=== PATIENT | male | born 1965 | race Caucasian/White ===

== ENCOUNTER 2019-03-23 11:23 | Observation (INO) | payer BC ==
[2019-03-22 11:51] LABS: BASOPHILS % 0.4 % (0.0-1.0); EOSINOPHILS # (AUTO) 0.2 (0.0-0.4); EOSINOPHILS % 3.6 % (0.0-6.0); HEMATOCRIT 49.3 % (38.2-49.6); HEMOGLOBIN 16.8 g/dL (14.0-18.0); LYMPHOCYTES # (AUTO) 1.6 (1.0-3.2); LYMPHOCYTES % 23.4 % (18.0-39.1); MEAN CORPUSCULAR HEMOGLOBIN 30.1 pg (28-32); MEAN CORPUSCULAR HGB CONC 34.1 g/dL (31-35); MEAN CORPUSCULAR VOLUME 88.2 fL (81-99); MONOCYTES # (AUTO) 0.7 (0.2-0.8); MONOCYTES % 9.9 % (4.4-11.3); NEUTROPHILS # (AUTO) 4.2 (2.1-6.9); NEUTROPHILS % 62.6 % (38.7-80.0); PLATELET COUNT 260 x10e3/uL (140-360); RED BLOOD COUNT 5.59 x10e6/uL (4.3-5.7); RED CELL DISTRIBUTION WIDTH 13.7 % (11.7-14.4)
[2019-03-22 12:01] LABS: PROTHROMBIN TIME 13.7 seconds (11.9-14.5)
[2019-03-22 12:02] LABS: PARTIAL THROMBOPLASTIN TIME 31.8 seconds (23.8-35.5)
--- NOTE | 2019-03-22 12:06 | Diagnostic Imaging Report ---
EXAMINATION: CHEST 2 VIEWS INDICATION: Pre-admit. COMPARISON: None FINDINGS: TUBES and LINES: None. LUNGS: Lungs are not well inflated. There is no evidence of pneumonia or pulmonary edema. Minimal patchy left basilar opacity, likely atelectasis. PLEURA: No pleural effusion or pneumothorax. HEART AND MEDIASTINUM: The cardiomediastinal silhouette is unremarkable. BONES AND SOFT TISSUES: No acute osseous lesion. Soft tissues are unremarkable. UPPER ABDOMEN: No free air under the diaphragm. IMPRESSION: No acute radiographic abnormality. Signed by: Dr. Jordon Cochran MD on 03/22/2019 12:02 PM
[2019-03-22 12:11] LABS: ALBUMIN 3.9 g/dL (3.5-5.0); ALBUMIN/GLOBULIN RATIO 1.2 (0.8-2.0); ANION GAP 9.8 mmol/L (8-16); CALCIUM 9.4 mg/dL (8.4-10.2); CREATININE, SERUM 1.48 mg/dL (0.72-1.25); POTASSIUM 3.8 mmol/L (3.5-5.1)
[~2019-03-23] VITALS: Ht 175.3 cm; Wt 93.0 kg
[~2019-03-23 11:23] MED LIST: AMITRIPTYLINE H25 MG PO; ASPIR 8181 MG PO; ATORVASTATIN CA20 MG PO; CO Q10200 MG PO; DIOVAN HCT 80-1 EACH PO; EYE DROP TEARS15 ML OP; LEVOCETIRIZINE D5 MG PO; MEGA MULTI FOR1 EAC1 PO; SINUS & ALLERG1 EACH PO; TOPAMAX25 MG PO
[2019-03-23] MEDS ORDERED: CEFOXITIN 1GM/ D5W 50ML 50 ML IV ONE (11:45)
--- OUTSIDE RECORDS SUMMARY | 2019-03-23 13:02 | XMS REPORT ---
Author Author [facility] Address Unknown Phone Unavailable Care Team Providers Care Shot Bagger Name Role Phone NAIMA BARNETT Unavailable Unavailable Problems This patient has no known problems. Allergies, Adverse Reactions, Alerts This patient has no known allergies or adverse reactions. Medications This patient has no known medications. Results Test Description Test Time Test Comments Text Results Atomic Results Result Comments CHEST 2 VIEWS 2019-03-22 12:01:00 [place] [address] Patient Name: JODI THOMAS MR #: [id number] : 1965 Age/Sex: 53/M Req #: [id number] Adm Physician: Ordered by: NAIMA BARNETT MD Report #: [id number] Location: OR Room/Bed: Procedure: [id number] DX/CHEST 2 VIEWS Exam Date: 03/22/19 Exam Time: 1140 REPORT STATUS: Signed EXAMINATION: CHEST 2 VIEWS INDICATION: Pre-admit. COMPARISON: None FINDINGS: TUBES and LINES: None. LUNGS: Lungs are not well inflated. There is no evidence of pneumonia or pulmonary edema. Minimal patchy left basilar opacity, likely atelectasis. PLEURA: No pleural effusion or pneumothorax. HEART AND MEDIASTINUM: The cardiomediastinal silhouette is unremarkable. BONES AND SOFT TISSUES: No acute osseous lesion. Soft tissues are unremarkable. UPPER ABDOMEN: No free air under the diaphragm. IMPRESSION: No acute radiographic abnormality. Signed by: Dr. Whitney Ragsdale MD on 03/22/2019 12:02 PM Dictated By: WHITNEY RAGSDALE MD [id number] Transcribed By: DAVID on 03/22/19 120 COPY TO: NAIMA BARNETT MD
[2019-03-23] MEDS ORDERED: HYDROCODONE/APAP 7.5MG-325MG 1 EA TAB PO PRN (13:15)
[2019-03-23 13:52] VITALS: BP 133/60
--- NOTE | 2019-03-23 14:26 | NUR ---
PATIENT PROVIDED CLEAR SODA AND CHICKEN BROTH, PATIENT DRANK BOTH OF THEM WITHOUT NAUSEA OR VOMITING.
[2019-03-23 14:34] VITALS: BP 111/91
[2019-03-23] MEDS: CEFOXITIN 1GM/ D5W 50ML 50 ML IV SCH ×2 (15:05→21:36)
[2019-03-23 15:07] VITALS: BP 133/60
[2019-03-23 16:14] VITALS: BP 137/71
[2019-03-23] MEDS: DOCUSATE SODIUM 100 MG CAP PO SCH (16:45)
[2019-03-23] MEDS ORDERED: PROPOFOL IV EMULSION 10 MG/ML 20 ML VIAL ONE (17:12)
[2019-03-23] MEDS ORDERED: LIDOCAINE HCL 2% LOCAL INJ 5 ML SDV VIAL INJ ONE (17:12)
--- NOTE | 2019-03-23 17:15 | Diagnostic Imaging Report ---
TECHNIQUE: Transrectal ultrasound of the prostate. Sonographic guidance was provided to Dr. David Lind for the purposes of a prostate biopsy. FINDINGS: The seminal vesicles are present and unremarkable. The gland size measures 3.3 x 2.0 x 1.5 cm. The volume is 5.1 cc. The peripheral zone is homogeneous without focal nodules. The transition zone demonstrates no discrete soft tissue nodule. A few calcifications are present. IMPRESSION: As above. Signed by: Dr. Rodrigo Lomas MD on 03/23/2019 5:11 PM
[2019-03-23] MEDS ORDERED: MIDAZOLAM HCL 2 MG/2 ML VIAL ONE (17:41)
[2019-03-23] MEDS ORDERED: FENTANYL CITRATE/PF 100MCG/2 ML INJ ONE (17:41)
--- NOTE | 2019-03-23 18:53 | NUR ---
GOT REPORT FROM PREVIOUS NURSE. CALL LIGHT WITHIN REACH. PATIENT IN BED.
[2019-03-23 20:00] VITALS: BP 133/85
--- NOTE | 2019-03-23 20:58 | Operative Report ---
DATE OF PROCEDURE: 03/23/2019 SURGEON: David Lind MD PREOPERATIVE DIAGNOSIS: Elevated prostate-specific antigen. POSTOPERATIVE DIAGNOSIS: Elevated prostate-specific antigen. OPERATION PERFORMED: Ultrasound-directed transrectal prostate biopsy. ANESTHESIA: General. INDICATIONS: This patient is a 53-year-old white male, who had a prostate-specific antigen of 7.3. For further details, please refer to the history and physical. The procedure was done in the following fashion. PROCEDURE IN DETAIL: The patient was taken to the operating room and placed under general anesthesia and placed in the lateral decubitus position with the right side up. Some moderate to large hemorrhoids were identified. The patient had the ultrasound probe inserted and an examination of the ultrasound probe revealed normal-appearing seminal vesicles with some internal calcifications present. The prostate was estimated about 20 g. Sextant biopsies were performed through the ultrasound probe using the Hy-Drive spring-loaded biopsy gun, the specimens were taken from the right base lateral, then right base medial, then right mid lateral, then right mid medial, then right apex lateral, then right apex medial, then left base lateral, then left base medial, then left mid lateral, then left mid medial, then left apex lateral, then left apex medial. Once this was accomplished, the ultrasound probe was removed. There was minimal bleeding from the anus. The patient was returned to the supine position. A 20-Setswana Jackson catheter was inserted. The patient tolerated the procedure well, left the operating room in good condition. My plan is to monitor him overnight on IV antibiotics, remove the Jackson catheter in the morning for a trial of voiding. David Lind MD DORIAN/MODL /[id number]
[2019-03-24] VITALS: BP 117/79
[2019-03-24] MEDS: CEFOXITIN 1GM/ D5W 50ML 50 ML IV SCH ×2 (03:13→10:01)
[2019-03-24 04:00] VITALS: BP 111/69
--- NOTE | 2019-03-24 07:04 | NUR ---
GAVE REPORT TO ONCOMING NURSE. CALL LIGHT WITHIN REACH. PATIENT IN BED.
[2019-03-24 07:27] VITALS: BP 130/70
[2019-03-24] MEDS: DOCUSATE SODIUM 100 MG CAP PO SCH (10:01)
[2019-03-24 10:19] VITALS: BP 130/70
[2019-03-24 11:11] VITALS: BP 136/72
[2019-03-24] MEDS ORDERED: MACROBID 100 M100 MG PO (11:49)
[2019-03-24] MEDS ORDERED: METRONIDAZOLE500 MG PO (12:00)
--- NOTE | 2019-03-24 14:22 | Progress Note ---
DATE: 03/24/2019 Discharge Progress Note The patient is now one day status post ultrasound-directed transrectal prostate biopsy. The Jackson catheter was removed. He is voiding clear colored urine at this time without difficulty. My plan at this time is for the patient to be discharged. He will have return appointment to see me again in 2 weeks. I am sending him home on Macrobid 100 mg p.o. twice daily for 10 days. He will have return appointment to see me again in 2 weeks to go over the results of the pathology. He will complete his course of Flagyl. David Lind MD SRA/MODL /[id number]
== END 2019-03-24 12:30 | disposition home or self-care (01) ==
LOC: OR 11:23 → PACU V 13:04 → IMCU 13:44
PROVIDERS: ADMIT Urology; ATTEND Urology
DX: C61 Malignant neoplasm of prostate (principal); R97.20 Elevated prostate specific antigen [PSA]; N40.0 Benign prostatic hyperplasia without lower urinary tract symptoms; E29.1 Testicular hypofunction; K21.9 Gastro-esophageal reflux disease without esophagitis; N52.1 Erectile dysfunction due to diseases classified elsewhere; K64.4 Residual hemorrhoidal skin tags; Z85.820 Personal history of malignant melanoma of skin; Z01.810 Encounter for preprocedural cardiovascular examination; Z01.812 Encounter for preprocedural laboratory examination; Z01.811 Encounter for preprocedural respiratory examination; I10 Essential (primary) hypertension; G43.909 Migraine, unspecified, not intractable, without status migrainosus; F41.9 Anxiety disorder, unspecified; E78.5 Hyperlipidemia, unspecified; Z80.42 Family history of malignant neoplasm of prostate
CPT/HCPCS: 36415; 55700; 71046; 76872; 76998; 80053; 85025; 85610; 85730; 88305; 93005; G0378 ×2; J2001; J2250; J2704